=== PATIENT | male | born 1965 ===

== ENCOUNTER 2021-10-17 08:49 | Day surgery (SDC) | payer OTHER ==
[~2021-10-17] VITALS: Ht 175.3 cm; Wt 77.1 kg
[~2021-10-17 08:49] MED LIST: AMLODIPI PO; FENOFIBRA PO; NEXIUM PO
== END 2021-10-17 14:35 | disposition home or self-care (01) ==
LOC: CIR.AMB 08:49
PROVIDERS: ATTEND Orthopaedic Surgery
DX: M77.11 Lateral epicondylitis, right elbow (principal); M24.821 Other specific joint derangements of right elbow, not elsewhere classified; Z20.822 Contact with and (suspected) exposure to COVID-19; I10 Essential (primary) hypertension; Z86.16 Personal history of COVID-19; G47.33 Obstructive sleep apnea (adult) (pediatric); Z71.6 Tobacco abuse counseling; Z85.038 Personal history of other malignant neoplasm of large intestine